=== PATIENT | female | born 1940 | race Caucasian/White ===

== ENCOUNTER 2021-05-01 15:14 | Inpatient (IN) | payer MEDICARE, OTHER ==
[~2021-05-01] VITALS: Ht 154.9 cm; Wt 45.4 kg
[2021-05-01] MEDS ORDERED: DEXAMETHASONE SOD PHOSPHATE 10 MG INJ ONE (15:46)
[2021-05-01] MEDS ORDERED: IV NORMAL SALINE 1000 ML BAG IV ONE (16:15)
--- NOTE | 2021-05-01 16:15 | NUR ---
Pt laying comfortably. Bedside XR being done. Saline lock in place, labs drawn from lock, EKG done. Pt SpO2 at 96-97% RA. Pt in no acute distress at this time. IV fluids running. Pt aware will await results of XR and Labs.
[2021-05-01 16:39] LABS: HEMATOCRIT 38.1 % (31.2-41.9); MEAN CORPUSCULAR HEMOGLOBIN 33.5 uug (24.7-32.8); MEAN CORPUSCULAR VOLUME 97.6 fL (75.5-95.3); PLATELET COUNT (AUTO) 131 K/uL (179-408)
[2021-05-01 16:47] LABS: CREATININE 0.8 mg/dL (0.6-1.3); POTASSIUM 3.7 mmol/L (3.5-5.1)
[2021-05-01 17:01] LABS: BILIRUBIN,TOTAL 0.8 mg/dL (0.2-1.0); TOTAL PROTEIN, SERUM 5.5 g/dL (6.4-8.2)
--- NOTE | 2021-05-01 17:30 | NUR ---
Pt in stable condition. VSS. Hypotensive, but pt states this is her normal range. Provider notified. Pt is 96% on RA, will have CTA done.
--- NOTE | 2021-05-01 18:00 | NUR ---
Pt taken via wheelchair, in stable condition, to CT scan by tech.
[2021-05-01] MEDS ORDERED: SWABABLE VALVE TRANSFER SET EA MC ONE (18:04)
[2021-05-01] MEDS ORDERED: NORMAL SALINE IV ONE (18:04)
[2021-05-01] MEDS ORDERED: IOHEXOL 350 100 ML INFUS..BTL ONE (18:04)
--- NOTE | 2021-05-01 18:25 | NUR ---
Pt brought back to unit from CT scan. Pt will await results from scan and labs, then discuss plan with provider. Pt aware.
--- NOTE | 2021-05-01 20:00 | NUR ---
[facility] Pt stable with good VS, saturating well with SaO2 94%-96%. Pt has good color and appearance. No complaints of pain, sob, dizziness, n/v. pt in holding pattern waiting for tele bed, 3rd floor aware and admitting aware.
--- NOTE | 2021-05-01 20:56 | NUR ---
`Pts son Zack called to talk to the pt. Call transfered to cordless phone and given to pt who was AAOx4 with good color and appearance. VSS, PE WNL. Saturating at 93%-96%. Pt talked to son for long time approx 20 min.
--- NOTE | 2021-05-01 21:30 | NUR ---
At bedside to assess pt and perform PE. PE WNL, VSS, pt AAOx4 with good color and appearance. Pt asked if she would like a dinner tray, but she refused saying that she has no appetit. Pt was told that it is important to get proper nutrition to help fortify the immune system and help fight the infection. She still refused. I asked her if she would like anything else to eat but she still refused.
[2021-05-01] MEDS ORDERED: ONDANSETRON 4 MG/2 ML VIAL IV PRN (21:45)
[2021-05-01] MEDS ORDERED: AZITHROMYCIN IV 500 MG in IV DEXTROSE 5% 250 ML IV SCH (21:45)
[2021-05-01] MEDS ORDERED: OSELTAMIVIR PHOSPHATE 75 MG CAPSULE PO ONE (22:15)
--- NOTE | 2021-05-01 23:30 | NUR ---
Pt asked again if she would like to have dinner but she refused again stating that she didnt feel like it.
--- NOTE | 2021-05-02 02:00 | NUR ---
Pt given evening meds a little late.
[2021-05-02] MEDS ORDERED: AZITHROMYCIN 500MG/ D5W 250ML IVPB **ER PYXIS ONLY IV ONE (02:22)
[2021-05-02] MEDS ORDERED: OSELTAMIVIR PHOSPHATE 75 MG CAPSULE ONE (02:24)
[2021-05-02 05:39] LABS: MEAN CORPUSCULAR HEMOGLOBIN 33.9 uug (24.7-32.8); MEAN CORPUSCULAR VOLUME 97.8 fL (75.5-95.3); PLATELET COUNT (AUTO) 124 K/uL (179-408)
[2021-05-02 06:07] LABS: BILIRUBIN,TOTAL 0.6 mg/dL (0.2-1.0); CREATININE 0.8 mg/dL (0.6-1.3); MAGNESIUM 1.9 mg/dL (1.8-2.4); PHOSPHOROUS 2.1 mg/dL (2.5-4.9); POTASSIUM 3.3 mmol/L (3.5-5.1)
--- NOTE | 2021-05-02 07:30 | NUR ---
recieved pt in isolation room. placed pt on bedside commode per request. pt had small amount of loose brown stool. pt says that she has diarrhea, hygiene/comfort measures provided. food/water and juice provided. pt not having apetite.on ra sat was 90-92, placedo2 4 litre via nc, improved it to 97%. pt awakw,axox4. very pleasant and cooperative.
[2021-05-02] MEDS: DEXAMETHASONE SOD PHOSPHATE 4 MG INJ IV SCH (08:51)
[2021-05-02] MEDS ORDERED: DEXAMETHASONE SOD PHOSPHATE 10 MG INJ ONE (08:59)
[2021-05-02] MEDS ORDERED: OSELTAMIVIR PHOSPHATE 75 MG CAPSULE PO ONE (09:00)
--- NOTE | 2021-05-02 12:30 | NUR ---
PT REFUSED HOSPITAL TRAT REQUESTING ONLY FOR SANDWICH AND WATER. PT HAD ALMOST 400 ML WATER SINCE THIS AM.
--- NOTE | 2021-05-02 15:40 | NUR ---
transfered pt to floor in stable condition.
--- NOTE | 2021-05-02 16:00 | NUR ---
Received this admission from ER per [email or web address], 80 female, with the chief complaint of fever and sore throat, with the diagnosis of Covid Pneumonia, Influenza A. Transferred to bed comfortably. Routine admission care rendered. Placed on Tele SR. Awake, alert, oriented x 4. O2 at 4L/NC, titrated to 2L/NC with O2 sat of 97%. Noted diarrhea. Incontinence care done.
[2021-05-02 16:17] VITALS: BP 93/53
[2021-05-02] MEDS ORDERED: PANT40TA49 PO (17:32)
[2021-05-02] MEDS: POTASSIUM PHOSPHATE MM 7.5 MMOL in IV NORMAL SALINE 97.5 ML IV SCH ×2 (17:34→21:10)
--- NOTE | 2021-05-02 17:34 | NUR ---
Potassium 3.3, Phos 2.1; KPhos IV given as ordered.
--- NOTE | 2021-05-02 18:58 | NUR ---
Tele SR 80; O2 at 2L/NC
[2021-05-02] MEDS ORDERED: Z GUARD REMEDY PASTE 57 GM TUBE TOP PRN (19:30)
--- NOTE | 2021-05-02 19:30 | NUR ---
Received awake, alert and orientedx4. Pt in no acute distress. Iv intact. Pt on 2l nasal cannula. Safety and comfort provided. Will continue to monitor.
[2021-05-02 20:06] VITALS: BP 112/58
--- NOTE | 2021-05-02 20:10 | NUR ---
Cooling measures done. Offered tylenol medication but pt refused. Pt stated she is fine and doesn't have fever. Pt in no acute distress. Will continue to monitor.
[2021-05-02] MEDS ORDERED: REMDESIVIR (CHARGED) 200 MG in IV NORMAL SALINE 210 ML IV ONE (21:00)
--- NOTE | 2021-05-02 21:10 | NUR ---
Pt approved to have Remdesivir. Remdesivir given. Pt in no acute distress and will continue to monitor.
[2021-05-02] MEDS: OSELTAMIVIR PHOSPHATE 75 MG CAPSULE PO SCH (21:11)
[2021-05-02 21:30] VITALS: BP 110/60
[2021-05-02] MEDS: ENOXAPARIN SODIUM 40 MG/0.4 ML DISP.SYRIN SQ SCH (21:56)
[2021-05-02 22:00] VITALS: BP 108/56
--- NOTE | 2021-05-02 22:10 | NUR ---
Pt tolerated Remdesivir. No adverse reaction noted.
[2021-05-02] MEDS ORDERED: OSELTAMIVIR PHOSPHATE 75 MG CAPSULE PO SCH (23:00)
[2021-05-02] MEDS: AZITHROMYCIN IV 500 MG in IV DEXTROSE 5% 250 ML IV SCH (23:12)
[2021-05-03] VITALS: BP 103/56
[2021-05-03 04:09] VITALS: BP 94/51
[2021-05-03] MEDS: ACETAMINOPHEN 325 MG TABLET PO PRN ×2 (05:20→20:32)
--- NOTE | 2021-05-03 06:24 | NUR ---
Pt slept intermittently. Pt in no acute distress. Pt on 2l nasal cannula. Prescribed medication given and pt tolerated it well.Pt on sinus rhythm. Safety and comfort provided .All needs are met. Will Endorse to incoming nurse for continuity of care.
[2021-05-03] MEDS: DEXAMETHASONE SOD PHOSPHATE 4 MG INJ IV SCH (08:46)
[2021-05-03] MEDS: OSELTAMIVIR PHOSPHATE 75 MG CAPSULE PO SCH ×2 (08:47→17:44)
[2021-05-03 11:03] VITALS: BP 93/55
[2021-05-03 13:51] LABS: HEMATOCRIT 38.8 % (31.2-41.9); MEAN CORPUSCULAR HEMOGLOBIN 33.5 uug (24.7-32.8); MEAN CORPUSCULAR VOLUME 97.6 fL (75.5-95.3); PLATELET COUNT (AUTO) 151 K/uL (179-408)
[2021-05-03 14:18] LABS: CREATINE KINASE, TOTAL 107 U/L (26-192)
[2021-05-03 14:30] LABS: ALANINE AMINOTRANSFERASE 41 U/L (14-59); ALKALINE PHOSPHATASE 79 U/L (50-136); ASPARTATE AMINOTRANSFERASE 28 U/L (15-37); BILIRUBIN,TOTAL 0.4 mg/dL (0.2-1.0); CARBON DIOXIDE 31 mmol/L (21-32); CHLORIDE 103 mmol/L (98-107); CREATININE 0.8 mg/dL (0.6-1.3); FERRITIN 445 ng/mL (8-252); GLUCOSE 172 mg/dL (74-106); LACTATE DEHYDROGENASE 263 U/L (81-234); MAGNESIUM 2.2 mg/dL (1.8-2.4); PHOSPHOROUS 2.2 mg/dL (2.5-4.9); POTASSIUM 4.2 mmol/L (3.5-5.1); TOTAL PROTEIN, SERUM 5.4 g/dL (6.4-8.2); UREA NITROGEN, BLOOD 20 mg/dL (7-18)
[2021-05-03 14:55] LABS: BILIRUBIN,DIRECT < 0.1 mg/dL (0.0-0.2)
[2021-05-03] MEDS ORDERED: NEUTRA PHOS PACKET PO ONE (15:30)
[2021-05-03 16:35] VITALS: BP 111/60
[2021-05-03] MEDS: REMDESIVIR (CHARGED) 100 MG in IV NORMAL SALINE 100 ML IV SCH (20:31)
[2021-05-03 20:33] VITALS: BP 96/51
[2021-05-03] MEDS: ENOXAPARIN SODIUM 40 MG/0.4 ML DISP.SYRIN SQ SCH (20:33)
[2021-05-03 21:43] VITALS: BP 105/55
[2021-05-03] MEDS: AZITHROMYCIN IV 500 MG in IV DEXTROSE 5% 250 ML IV SCH (22:50)
[2021-05-04 00:20] VITALS: BP 100/52
[2021-05-04 04:50] VITALS: BP 105/57
--- NOTE | 2021-05-04 06:48 | NUR ---
Slept throughout the night. Denies pain or SOB. IV site intact. Tolerated all medications given. No distress noted. Will endorse to day shift.
--- NOTE | 2021-05-04 06:57 | NUR ---
Oxygen titrated to 1L, tolerating well.
--- NOTE | 2021-05-04 07:37 | NUR ---
Received patient report from police shift commander nurse, Catalina GONZALEZ. Patient resting comfortably in bed with no signs of distress or discomfort. IV site intact and patent. Bed left in lowest position with call light within reach. Will continue to monitor patient throughout shift.
[2021-05-04 08:42] LABS: HEMATOCRIT 36.9 % (31.2-41.9); MEAN CORPUSCULAR HEMOGLOBIN 33.6 uug (24.7-32.8); MEAN CORPUSCULAR VOLUME 97.8 fL (75.5-95.3); PLATELET COUNT (AUTO) 135 K/uL (179-408)
[2021-05-04] MEDS: DEXAMETHASONE SOD PHOSPHATE 4 MG INJ IV SCH (08:52)
[2021-05-04] MEDS: OSELTAMIVIR PHOSPHATE 75 MG CAPSULE PO SCH ×2 (08:52→17:31)
[2021-05-04 10:22] LABS: ALANINE AMINOTRANSFERASE 36 U/L (14-59); ALKALINE PHOSPHATASE 62 U/L (50-136); ASPARTATE AMINOTRANSFERASE 28 U/L (15-37); BILIRUBIN,TOTAL 0.3 mg/dL (0.2-1.0); CARBON DIOXIDE 27 mmol/L (21-32); CHLORIDE 106 mmol/L (98-107); CREATININE 0.5 mg/dL (0.6-1.3); GLUCOSE 153 mg/dL (74-106); POTASSIUM 3.5 mmol/L (3.5-5.1); TOTAL PROTEIN, SERUM 4.6 g/dL (6.4-8.2); UREA NITROGEN, BLOOD 16 mg/dL (7-18)
[2021-05-04 10:25] LABS: BILIRUBIN,DIRECT < 0.1 mg/dL (0.0-0.2)
--- NOTE | 2021-05-04 10:30 | NUR ---
Patient given Remdisivir. Tolerated well. Will continue to monitor.
[2021-05-04 10:59] LABS: MAGNESIUM 2.4 mg/dL (1.8-2.4); PHOSPHOROUS 2.1 mg/dL (2.5-4.9)
[2021-05-04 12:00] VITALS: BP 101/51
[2021-05-04 16:56] VITALS: BP 114/52
[2021-05-04] MEDS: GLUCERNA SHAKE VANILLA 237 ML CAN PO SCH (17:32)
[2021-05-04] MEDS ORDERED: SODIUM PHOSPHATE MM 15 MMOL in IV NORMAL SALINE 250 ML IV ONE (18:00)
--- NOTE | 2021-05-04 19:30 | NUR ---
Received patient watching TV in bed. Patient is awake, alert and oriented times 4. Patient is ambulatory. Safety measures are in place. Will continue monitoring,
[2021-05-04 20:00] VITALS: BP 111/62
[2021-05-04] MEDS: REMDESIVIR (CHARGED) 100 MG in IV NORMAL SALINE 100 ML IV SCH (21:51)
[2021-05-04] MEDS: ENOXAPARIN SODIUM 40 MG/0.4 ML DISP.SYRIN SQ SCH (21:53)
[2021-05-04] MEDS: AZITHROMYCIN IV 500 MG in IV DEXTROSE 5% 250 ML IV SCH (23:39)
[2021-05-05] VITALS: BP 105/52
[2021-05-05 04:00] VITALS: BP 101/57
--- NOTE | 2021-05-05 08:30 | NUR ---
awake alert/oriented, on / 02 sat 95%, no distress noted, tele SR 70's, states still feels weak, explained plan of care- verbalized understanding, needs attended, call light within reach
[2021-05-05] MEDS: DEXAMETHASONE SOD PHOSPHATE 4 MG INJ IV SCH (09:43)
[2021-05-05] MEDS: GLUCERNA SHAKE VANILLA 237 ML CAN PO SCH ×3 (09:44→17:21)
[2021-05-05] MEDS: OSELTAMIVIR PHOSPHATE 75 MG CAPSULE PO SCH ×2 (09:48→17:21)
[2021-05-05] MEDS: PANTOPRAZOLE SODIUM 40 MG TABLET.DR PO SCH (09:52)
[2021-05-05 12:00] VITALS: BP 110/58
[2021-05-05 14:40] LABS: HEMATOCRIT 39.6 % (31.2-41.9); MEAN CORPUSCULAR HEMOGLOBIN 32.9 uug (24.7-32.8); MEAN CORPUSCULAR VOLUME 97.7 fL (75.5-95.3); PLATELET COUNT (AUTO) 175 K/uL (179-408)
[2021-05-05 15:02] LABS: ALANINE AMINOTRANSFERASE 45 U/L (14-59); ALKALINE PHOSPHATASE 72 U/L (50-136); ASPARTATE AMINOTRANSFERASE 39 U/L (15-37); BILIRUBIN,TOTAL 0.3 mg/dL (0.2-1.0); CARBON DIOXIDE 33 mmol/L (21-32); CHLORIDE 104 mmol/L (98-107); CREATININE 0.6 mg/dL (0.6-1.3); GLUCOSE 168 mg/dL (74-106); PHOSPHOROUS 2.4 mg/dL (2.5-4.9); POTASSIUM 3.6 mmol/L (3.5-5.1); TOTAL PROTEIN, SERUM 4.8 g/dL (6.4-8.2); UREA NITROGEN, BLOOD 16 mg/dL (7-18)
[2021-05-05 15:11] LABS: BILIRUBIN,DIRECT < 0.1 mg/dL (0.0-0.2)
--- NOTE | 2021-05-05 18:39 | NUR ---
resting in bed, no distress noted, remains on 1l/nc wissth sat of 95-96%, all needs attended and met, call light within reach
--- NOTE | 2021-05-05 19:42 | NUR ---
Received pt lying in bed, resting. AO x 4. On 2L NC saturating at 94%. No signs of acute distress. Afebrile. IV in R forearm intact. Call lights within reach, safety measures initiated. Will continue to monitor.
[2021-05-05 20:51] VITALS: BP 97/52
[2021-05-05] MEDS: REMDESIVIR (CHARGED) 100 MG in IV NORMAL SALINE 100 ML IV SCH (20:56)
[2021-05-05] MEDS: ENOXAPARIN SODIUM 40 MG/0.4 ML DISP.SYRIN SQ SCH (20:56)
[2021-05-05] MEDS: AZITHROMYCIN IV 500 MG in IV DEXTROSE 5% 250 ML IV SCH (22:32)
[2021-05-06 04:35] VITALS: BP 105/62
--- NOTE | 2021-05-06 06:57 | NUR ---
Pt slept throughout the night. AO x 4. On 15L NRB mask saturating at 99%. No signs of acute distress. IV in R FA intact. Small non-productive cough with small thin secretions. Azithromycin abx completed and tolerated. Patient is able to state all needs. Needs have been met. Compliant with care and medications. Call lights within reach, safety precautions maintained. Will endorse to am shift.
[2021-05-06 07:51] LABS: HEMATOCRIT 37.1 % (31.2-41.9); MEAN CORPUSCULAR HEMOGLOBIN 33.2 uug (24.7-32.8); MEAN CORPUSCULAR VOLUME 96.5 fL (75.5-95.3); PLATELET COUNT (AUTO) 172 K/uL (179-408)
[2021-05-06 08:02] LABS: ALANINE AMINOTRANSFERASE 55 U/L (14-59); ALKALINE PHOSPHATASE 67 U/L (50-136); ASPARTATE AMINOTRANSFERASE 47 U/L (15-37); BILIRUBIN,DIRECT < 0.1 mg/dL (0.0-0.2); BILIRUBIN,TOTAL 0.4 mg/dL (0.2-1.0); CARBON DIOXIDE 32 mmol/L (21-32); CHLORIDE 106 mmol/L (98-107); CREATININE 0.5 mg/dL (0.6-1.3); GLUCOSE 100 mg/dL (74-106); MAGNESIUM 2.3 mg/dL (1.8-2.4); PHOSPHOROUS 2.4 mg/dL (2.5-4.9); POTASSIUM 3.2 mmol/L (3.5-5.1); TOTAL PROTEIN, SERUM 4.5 g/dL (6.4-8.2); UREA NITROGEN, BLOOD 14 mg/dL (7-18)
[2021-05-06] MEDS: DEXAMETHASONE SOD PHOSPHATE 4 MG INJ IV SCH (09:34)
[2021-05-06] MEDS: OSELTAMIVIR PHOSPHATE 75 MG CAPSULE PO SCH (09:35)
[2021-05-06] MEDS: GLUCERNA SHAKE VANILLA 237 ML CAN PO SCH ×3 (09:39→17:00)
[2021-05-06] MEDS: PANTOPRAZOLE SODIUM 40 MG TABLET.DR PO SCH (10:07)
[2021-05-06] MEDS ORDERED: POTASSIUM CHLORIDE 20 MEQ TAB.PRT.SR PO ONE (11:00)
[2021-05-06] MEDS ORDERED: NEUTRA PHOS PACKET PO ONE (16:15)
[2021-05-06] MEDS: ALBUTEROL SULFATE 8 GM HFA.AER.AD IH PRN ×2 (16:24→18:15)
[2021-05-06] MEDS: IPRATROPIUM BROMIDE 12.9 GM INHALER INH SCH ×2 (18:27→18:32)
[2021-05-06 20:52] VITALS: BP 102/58
[2021-05-06] MEDS: REMDESIVIR (CHARGED) 100 MG in IV NORMAL SALINE 100 ML IV SCH (20:54)
[2021-05-06] MEDS: ENOXAPARIN SODIUM 40 MG/0.4 ML DISP.SYRIN SQ SCH (20:55)
[2021-05-07] MEDS: IPRATROPIUM BROMIDE 12.9 GM INHALER INH SCH ×3 (00:52→12:00)
[2021-05-07 04:30] VITALS: BP 103/64
[2021-05-07 07:58] LABS: CREATININE 0.6 mg/dL (0.6-1.3); PHOSPHOROUS 2.9 mg/dL (2.5-4.9); POTASSIUM 4.2 mmol/L (3.5-5.1)
[2021-05-07] MEDS: PANTOPRAZOLE SODIUM 40 MG TABLET.DR PO SCH (08:12)
[2021-05-07] MEDS: DEXAMETHASONE SOD PHOSPHATE 4 MG INJ IV SCH (08:12)
[2021-05-07 08:21] VITALS: BP 119/60
[2021-05-07] MEDS: GLUCERNA SHAKE VANILLA 237 ML CAN PO SCH ×3 (08:34→17:00)
[2021-05-07 13:13] VITALS: BP 110/66
[2021-05-07] MEDS ORDERED: IPRATROPIUM BROMIDE 12.9 GM INHALER INH PRN (15:30)
[2021-05-07 16:43] VITALS: BP 107/58
[2021-05-07 20:58] VITALS: BP 102/58
[2021-05-07] MEDS: ENOXAPARIN SODIUM 40 MG/0.4 ML DISP.SYRIN SQ SCH (21:30)
[2021-05-08 01:00] VITALS: BP 100/60
[2021-05-08 04:52] VITALS: BP 111/59
--- NOTE | 2021-05-08 06:15 | NUR ---
Patient alert x4.Denies pain. On 5LPM via Nc,saturating at 92-94%. No signs of acute distress. IV in R FA intact. Compliant with medication. Call lights within reach.Will endorse to am shift.
[2021-05-08 09:00] VITALS: BP 110/62
[2021-05-08] MEDS: GLUCERNA SHAKE VANILLA 237 ML CAN PO SCH ×3 (09:00→17:25)
[2021-05-08] MEDS: DEXAMETHASONE SOD PHOSPHATE 4 MG INJ IV SCH (09:00)
[2021-05-08] MEDS: PANTOPRAZOLE SODIUM 40 MG TABLET.DR PO SCH (09:00)
--- NOTE | 2021-05-08 09:49 | NUR ---
Received in bed awake, alert oriented x4. No acute distress. Received on 3 Lpm nasal cannula O2 sat 97%. Denies sob or difficulty breathing. Patient requested oxygen to be titrated. O2 at 2.5lpm nc at this time and tolerating well O2 sat 94%. Denies sob/chest pain/difficulty breathing. Seen and examined by Dr. Rangel and updated on medical condition. Safety measures in place. Call light in reach. Will cont to monitor.
[2021-05-08 12:00] VITALS: BP 116/60
--- NOTE | 2021-05-08 18:26 | NUR ---
pt pleasant. compliant with care. tolerating well at 2.5 lpm via nc. o2 sat 94-95%. denies sob. intermittent dry non productive coughing noted. needs attended. will cont to monitor.
--- NOTE | 2021-05-08 19:00 | NUR ---
Received in bed awake, AAOX4. Patient denies SOB, chest pain or dizziness at this time. Currently on 2L O2 via NC, saturating at 94%. IV access pom R FA gauge 20, intact and patent. Safety measures in place. Call light and frequently used items within reach. Will continue to monitor.
[2021-05-08 20:27] VITALS: BP 111/62
[2021-05-08] MEDS: ENOXAPARIN SODIUM 40 MG/0.4 ML DISP.SYRIN SQ SCH (22:36)
[2021-05-09 04:24] VITALS: BP 111/63
--- NOTE | 2021-05-09 07:06 | NUR ---
Patient slept through the night with no compliants. AAOX4. Compliant with medications. F/U Chest Xray done at 6am. IV access patent and intact. Patient denies SOB, chest pain or dizziness at this time. All needs attended to and met. Will endorse to day shift.
[2021-05-09 07:39] LABS: HEMATOCRIT 36.7 % (31.2-41.9); MEAN CORPUSCULAR HEMOGLOBIN 32.7 uug (24.7-32.8); MEAN CORPUSCULAR VOLUME 96.6 fL (75.5-95.3); PLATELET COUNT (AUTO) 260 K/uL (179-408)
[2021-05-09 08:19] LABS: CREATININE 0.6 mg/dL (0.6-1.3); MAGNESIUM 2.1 mg/dL (1.8-2.4); PHOSPHOROUS 3.7 mg/dL (2.5-4.9); POTASSIUM 3.9 mmol/L (3.5-5.1)
[2021-05-09] MEDS: DEXAMETHASONE SOD PHOSPHATE 4 MG INJ IV SCH (09:08)
[2021-05-09] MEDS: PANTOPRAZOLE SODIUM 40 MG TABLET.DR PO SCH (09:08)
[2021-05-09] MEDS: GLUCERNA SHAKE VANILLA 237 ML CAN PO SCH ×3 (10:20→18:13)
[2021-05-09 11:35] VITALS: BP 111/61
[2021-05-09 16:05] VITALS: BP 102/62
--- NOTE | 2021-05-09 17:00 | NUR ---
RECEIVED PATIENT IN BED AWAKE ALERT AND ORIENTED DENIES PAIN OR DISCOMFORTS AT THIS TIME REMAIN ON O2 AT 2L/M BY NASAL CANULA WITH NO SOB AT THIS TIME AFEBRILE REMAIN ON CONTACT ISOLATION AND PRECAUTION NOT IN DISTRESS AT THIS TIME WILL CONTINUE TO OBSERVE.
--- NOTE | 2021-05-09 19:45 | NUR ---
Received patient lying in bed. AAOX4. In no apparent distress. Denies any pain or SOB. On O2 at 2LPM via NC in place. O2 sat at 95%. IV site on right FA intact and patent. COVID precaution observed. Needs assessed and attended to. Safety measure initiated and call lux within reached.
[2021-05-09 20:00] VITALS: BP 105/59
[2021-05-09] MEDS: ENOXAPARIN SODIUM 40 MG/0.4 ML DISP.SYRIN SQ SCH (20:50)
--- NOTE | 2021-05-09 21:00 | NUR ---
Titrated down O2 at 1LPM via NC. No complain of SOB at this time. Continue to monitor.
[2021-05-10 04:00] VITALS: BP 112/59
--- NOTE | 2021-05-10 05:50 | NUR ---
Pt slept well last night. Denies any pain or SOB. O2 at 1LPM via NC. O2 sat at 97%. IV site on right FA remains intact and patent. Needs attended to and met. COVID precaution maintained. Safety measure maintained and call lux within reached.
[2021-05-10 06:06] LABS: *IGG SUBCLASS 1 70 mg/dL (248-810); *IGG SUBCLASS 2 5 mg/dL (130-555); *IGG SUBCLASS 3 1 mg/dL (15-102); *IGG SUBCLASS 4 <1 mg/dL (2-96); *IMMUNOGLOBULIN G, SERUM 95 mg/dL (586-1602)
[2021-05-10] MEDS: ACETAMINOPHEN 325 MG TABLET PO PRN (08:15)
[2021-05-10] MEDS: PANTOPRAZOLE SODIUM 40 MG TABLET.DR PO SCH (08:15)
[2021-05-10] MEDS: DEXAMETHASONE SOD PHOSPHATE 4 MG INJ IV SCH (08:15)
[2021-05-10] MEDS: GLUCERNA SHAKE VANILLA 237 ML CAN PO SCH ×3 (08:16→16:08)
[2021-05-10 10:06] LABS: *IGG SUBCLASS 1 69 mg/dL (248-810); *IGG SUBCLASS 2 5 mg/dL (130-555); *IGG SUBCLASS 3 1 mg/dL (15-102); *IGG SUBCLASS 4 <1 mg/dL (2-96); *IMMUNOGLOBULIN G, SERUM 96 mg/dL (586-1602)
[2021-05-10 10:06] LABS: *IGG SUBCLASS 1 68 mg/dL (248-810); *IGG SUBCLASS 2 5 mg/dL (130-555); *IGG SUBCLASS 3 1 mg/dL (15-102); *IGG SUBCLASS 4 <1 mg/dL (2-96); *IMMUNOGLOBULIN G, SERUM 98 mg/dL (586-1602)
[2021-05-10 12:00] VITALS: BP 113/67
[2021-05-10 16:00] VITALS: BP 103/63
--- NOTE | 2021-05-10 17:03 | NUR ---
PATIENT TOLERATING RA SINCE 1200 NOON SATURATING 94-98%, NO SS OF DISTRESS, PLAN DC HOME AND CONTINUE QUARANTINE. SON AWARE
--- NOTE | 2021-05-10 17:05 | NUR ---
FOLLOWED BY [facility] FOR FOLLOW-UP SEE NOTES
--- NOTE | 2021-05-10 17:06 | NUR ---
AWAKE ALERT AND ORIENT X3, O2 AT 2L SATURATING 94-96%, NO SS OF PAIN SR ON MONITOR
--- NOTE | 2021-05-10 18:42 | NUR ---
DISCHARGE HOME STABLE PICKED-UP BY SON, PATIENT SAID "I DON'T NEED WALKER AT HOME I CAN WALK ON MY OWN" PATIENT CONTINUE TO TOLERATE RA SATURATING 98% ON DISCHARGE. DISCHARGE INSTRUCTION GIVEN
== END 2021-05-10 18:40 | disposition home or self-care (01) | DRG 871 ==
LOC: ER 15:18 → TELE3 21:49 → MEDSURG3 05-05 11:36
PROVIDERS: ADMIT Hospitalist; ATTEND Registered Nurse
PROC: XW033E5 Introduction of Remdesivir Anti-infective into Peripheral Vein, Percutaneous Approach, New Technology Group 5 (ICD-10-PCS; principal; 2021-05-02)
DX: A41.89 Other specified sepsis (principal); U07.1 COVID-19; J12.82 Pneumonia due to coronavirus disease 2019; J96.01 Acute respiratory failure with hypoxia; J10.1 Influenza due to other identified influenza virus with other respiratory manifestations; Z86.16 Personal history of COVID-19; D69.6 Thrombocytopenia, unspecified; E83.39 Other disorders of phosphorus metabolism; E87.6 Hypokalemia; Z85.3 Personal history of malignant neoplasm of breast; Z85.72 Personal history of non-Hodgkin lymphomas; Z96.642 Presence of left artificial hip joint; Z87.891 Personal history of nicotine dependence; Z88.0 Allergy status to penicillin; Z92.21 Personal history of antineoplastic chemotherapy; Z82.49 Family history of ischemic heart disease and other diseases of the circulatory system
CPT/HCPCS: 36415; 70030-TC; 71045; 71275; 83605; 83615; 83735; 84100; 85025; 85610; 85730; 86140; 86403; 87040; 87070; 87400; 93005; 97161; A6209; G0378; J0456; J1100; J1650; J3490; J3535; J7030; J7050; J7060; Q9967; U0003